=== PATIENT | female | born 1990 | race Caucasian/White ===

== ENCOUNTER → 2016-12-06 | Outpatient (CLI) | payer OTHER ==
--- NOTE | 2016-12-06 14:16 | REP ---
The third trimester obstetrical ultrasound for gestational diabetes: Comparison is the anatomy ultrasound dated 09/05/2016. There is a single intrauterine gestation in a vertex presentation. There is movement and cardiac activity, the heart rate is 131 beats per minute. The placenta is anterior. There is no placenta previa or abruptio. The placenta demonstrates grade 2 maturity. Subjectively amniotic fluid volume is normal. The amniotic fluid index is 15.9 (7.6 - 24.7). Gestational age by today's measurements is 35 weeks 2 days. Gestational age by the first ultrasound this gestation is 36 weeks 3 days and by LMP 36 weeks 3 days. weight is 2669 grams (5 pounds, 14 ounces). This is the 35th percentile for 36 weeks 3 days. Umbilical artery Doppler assessment: SD ratio 2.33 (1.84 - 2.84). Resistive index is 0.59 (0.59 - 0.75). Diastolic flow velocity 10.5 cm per second (lower limit of normal is 10 cm/sec). Signed by Cecil Carpenter MD 12/06/2016 02:07 P
== END ==
LOC: M LRY 08:42
PROVIDERS: ATTEND Specialist
DX: Z36 Encounter for antenatal screening of mother (principal); O24.410 Gestational diabetes mellitus in pregnancy, diet controlled; Z3A.35 35 weeks gestation of pregnancy

== ENCOUNTER → 2016-12-10 | Outpatient (REF) | payer OTHER | LOC: M LAB REF 13:51 | PROVIDERS: ATTEND Obstetrics & Gynecology | DX: Z34.83 Encounter for supervision of other normal pregnancy, third trimester (principal) ==

== ENCOUNTER 2016-12-21 07:58 | Inpatient (IN) | payer OTHER ==
[~2016-12-21] VITALS: Ht 160 cm; Wt 99.0 kg
[2016-12-21] VITALS (34 sets, daily range): BP systolic 105–202; BP diastolic 55–100
[2016-12-21] MEDS ORDERED: LEVO25TA5 PO (08:22)
[2016-12-21] MEDS ORDERED: PRENTAB9 PO (08:22)
[2016-12-21] MEDS ORDERED: ZOLO100T PO (08:22)
[2016-12-21] MEDS ORDERED: LR 1,000 ML IV SCH (11:26)
[2016-12-21] MEDS ORDERED: LACTATED RINGER'S 1000 ML IV STA (11:26)
[2016-12-21 12:09] LABS: MEAN CORPUSCULAR HGB CONC 34.4 g/dl (32.0-36.5); MEAN CORPUSCULAR VOLUME 81.5 fl (80.0-96.0); RED CELL DISTRIBUTION WIDTH 13.2 % (11.5-14.5); WHITE BLOOD COUNT 14.3 K/mm3 (4.0-10.0)
[2016-12-21] MEDS ORDERED: PROMETHAZINE INJ 25 MG/ML VIAL (J2550) IM ONE (12:15)
[2016-12-21] MEDS ORDERED: BUTORPHANOL 2 MG/ML INJ (J0595) IV ONE (12:15)
[2016-12-21] MEDS ORDERED: PROMETHAZINE INJ 25 MG/ML VIAL (J2550) IV ONE (12:30)
--- NOTE | 2016-12-21 13:32 | HPE ---
DATE OF ADMISSION: 12/21/2016 HISTORY: 26-year-old, (G) 1, para (P) 0 female, at 38-4/7 weeks gestation by last menstrual period (LMP) consistent with 10 week ultrasound, estimated date of confinement (EDC) 12/31/2016, presents with spontaneous loss of fluid per vagina at 3 a.m. on the day of admission. Her contractions increased progressively after that in intensity. She continued to leak fluid in small amounts after the initial gush of fluid. COURSE: The patient initiated care at 10 weeks gestation on 06/06/2016. Her first trimester blood pressure was 124/76. Weight was 198 pounds. She has hypothyroidism, which was monitored during . She requires Synthroid 50 mcg daily. She had diet controlled gestational diabetes rule out the as well. Ultrasound revealed growth at the 35th percentile at 37 weeks gestation. MEDICAL HISTORY: Anxiety and depression. SURGICAL HISTORY: None. ALLERGIES: None. SOCIAL HISTORY: The patient is . She denies cigarettes, alcohol or drug. FAMILY HISTORY: Noncontributory. PHYSICAL EXAMINATION: Blood pressure 130/78. Pulse 84. She appears moderately uncomfortable. Head and neck exam normal. Lungs clear. Heart regular rate and rhythm. Abdomen nontender, gravid. heart tones category 1. Sterile vaginal exam: Grossly ruptured with clear fluid. Cervix is 4 cm, 105% and -2 station, vertex. Contractions every 2-3 minutes. Extremities nontender. LABS: Blood type A positive, rubella immune. RPR nonreactive. Hepatitis B and C negative. HIV negative. GBS negative on 12/10/2016. ASSESSMENT: 26-year-old, 1, at 38-4/7 weeks gestation with diet controlled gestational diabetes presents with spontaneous rupture of membranes in active labor. The patient admitted on . Anticipate vaginal delivery.
[2016-12-21] MEDS ORDERED: FENTANYL 2MCG/ML ROPIVACAINE 0.2% NACL 250 ML CADD As Ordered ONE (13:53)
[2016-12-21] MEDS ORDERED: EPIDURAL COMMENT XX SCH (15:00)
[2016-12-21] MEDS ORDERED: ePHEDrine SULFATE 25 MG/5 ML(5MG/ML) SYRINGE IV PRN (15:00)
[2016-12-21] MEDS ORDERED: ONDANSETRON 4MG/2ML VIAL (J2405) IV PRN ×2 (15:00→22:00)
[2016-12-21] MEDS ORDERED: FENTANYL/ROPIVACAINE/NACL CADD 250 ML EPIDURAL SCH (15:00)
[2016-12-21] MEDS ORDERED: NALOXONE INJ 0.4 MG/1 ML VIAL (J2310) IV PRN (15:00)
[2016-12-21] MEDS ORDERED: LACTATED RINGER'S 1000 ML IV PRN (15:00)
[2016-12-21] MEDS ORDERED: diphenhydrAMINE INJ 50MG/ML VIAL (J1200) IV PRN (15:00)
[2016-12-21] MEDS ORDERED: EPIDURAL/PCA KEYS XX PRN (15:00)
[2016-12-21] MEDS ORDERED: REFRIGERATOR IV KEYS XX PRN (15:00)
[2016-12-21] MEDS ORDERED: OXYTOCIN DRIP 30 UNITS in APPROPRIATE DILUENT 1 EA IV SCH (16:45)
[2016-12-21] MEDS ORDERED: DOCUSATE SODIUM 100 MG CAP PO PRN (22:00)
[2016-12-21] MEDS ORDERED: RHOGAM 300 MCG (1500 IU) INJ (J2790) IM SCH (22:00)
[2016-12-21] MEDS ORDERED: METHYLERGONOVINE MALEATE 0.2 MG TAB PO PRN (22:00)
[2016-12-21] MEDS ORDERED: OXYTOCIN DRIP 30 UNITS in APPROPRIATE DILUENT 1 EA IV ONE (22:00)
[2016-12-21] MEDS ORDERED: MEASLES,MUMPS,RUBELLA VACCINE INJ (MMR-II) (90707) SC SCH (22:00)
[2016-12-21] MEDS ORDERED: DIBUCAINE 1% OINTMENT 30GM TOP PRN (22:00)
[2016-12-21] MEDS: IBUPROFEN 800 MG TAB PO PRN (22:39)
[2016-12-22 06:00] VITALS: BP 125/74
[2016-12-22] MEDS: LEVOTHYROXINE 0.05 MG TAB (50 MCG) PO SCH (06:43)
[2016-12-22] MEDS: IBUPROFEN 800 MG TAB PO PRN ×2 (07:34→16:41)
[2016-12-22] MEDS: PRENATAL VITAMIN TAB PO SCH (07:35)
[2016-12-22] MEDS: SERTRALINE 100 MG TAB PO SCH (07:35)
[2016-12-22] MEDS ORDERED: SERTRALINE HCL 50 MG TAB PO SCH (09:00)
--- NOTE | 2016-12-22 13:59 | DN ---
DATE: 12/21/2016 PREDELIVERY DIAGNOSIS: 38 and 4/7 weeks, labor. POSTDELIVERY DIAGNOSIS: Delivered. PROCEDURE: Spontaneous vaginal delivery. FILM PROCESS OPERATOR: Dr. Maximiliano Lopez ANESTHESIA: Epidural. ESTIMATED BLOOD LOSS: 300 mL. FINDINGS: 6 pounds 6 ounce female infant. scores of 7 and 9. DELIVERY SUMMARY: After approximately 50 minute second stage, the patient had spontaneous delivery of a 7 pounds 9 ounce female infant under epidural anesthesia. There was no nuchal cord. The shoulders delivered spontaneously with ease. The cord was doubly clamped and cut. The was handed to the mother. The placenta delivered spontaneously and appeared to be intact. The patient received IV pitocin immediately after delivery of the placenta. First degree perineal laceration was repaired with single suture of #3-0 chromic. Sponge, needle and instrument counts were correct.
[2016-12-22] MEDS: ACETAMINOPHEN 500 MG TAB PO PRN ×2 (14:10→21:14)
[2016-12-22 18:06] VITALS: BP 113/69
[2016-12-23] MEDS: LEVOTHYROXINE 0.05 MG TAB (50 MCG) PO SCH (05:30)
[2016-12-23] MEDS: IBUPROFEN 800 MG TAB PO PRN (05:30)
[2016-12-23 05:33] VITALS: BP 136/74
[2016-12-23] MEDS: PRENATAL VITAMIN TAB PO SCH (07:40)
[2016-12-23] MEDS: SERTRALINE 100 MG TAB PO SCH (07:40)
[2016-12-23] MEDS ORDERED: ACET50TA PO (11:56)
[2016-12-23] MEDS ORDERED: IBUP-1114 PO (11:56)
== END 2016-12-23 12:10 | disposition home or self-care (01) | DRG 775 ==
LOC: M LDO 07:58 → M LDI 11:25 → M OBS 22:57
PROVIDERS: ADMIT Specialist; ATTEND Specialist
PROC: 10E0XZZ Delivery of Products of Conception, External Approach (ICD-10-PCS; principal; 2016-12-21)
PROC: 0HQ9XZZ Repair Perineum Skin, External Approach (ICD-10-PCS; 2016-12-21)
DX: O24.410 Gestational diabetes mellitus in pregnancy, diet controlled (principal); Z37.0 Single live birth; Z3A.38 38 weeks gestation of pregnancy; E03.9 Hypothyroidism, unspecified; O99.284 Endocrine, nutritional and metabolic diseases complicating childbirth; O70.0 First degree perineal laceration during delivery

== ENCOUNTER → 2017-02-07 | Outpatient (CLI) | payer OTHER ==
[~2017-02-07] MED LIST: ACET50TA PO; IBUP-1114 PO; LEVO25TA5 PO; PRENTAB9 PO; ZOLO100T PO
== END ==
LOC: M LAB 08:22
PROVIDERS: ATTEND Specialist
DX: O24.410 Gestational diabetes mellitus in pregnancy, diet controlled (principal); Z3A.00 Weeks of gestation of pregnancy not specified

== ENCOUNTER → 2017-03-12 | Outpatient (REF) | payer OTHER | LOC: M SFHCLERA 11:06 | PROVIDERS: ATTEND Family Medicine | DX: E03.9 Hypothyroidism, unspecified (principal); Z53.9 Procedure and treatment not carried out, unspecified reason ==

== ENCOUNTER → 2017-03-15 | Outpatient (REF) | payer OTHER ==
[2017-03-15 20:36] LABS: FREE T4 2.4 NG/DL (0.76-1.46)
== END ==
LOC: M SFHCLERA 17:46
PROVIDERS: ATTEND Family Medicine
DX: E03.9 Hypothyroidism, unspecified (principal)

== ENCOUNTER → 2017-03-19 | Outpatient (CLI) | payer OTHER ==
--- NOTE | 2017-03-19 09:18 | REP ---
Clinical: Hypothyroidism. Technique: Real time christianson scale and color evaluation using linear high frequency transducer. Findings: The thyroid gland is mildly heterogeneous but otherwise normal in contour size and vascularity. Right lobe measures 4.4 x 1.5 x 1.2 cm without discrete nodule or cyst. Left lobe measures 3.8 x 1.7 x 1.3 cm with a 4 mm nodule along the inferior posterior margin which may actually reflect parathyroid gland. No other cyst or nodule is identified. The isthmus measures 3.5 mm in width. Impression: Heterogeneous relatively normal appearance to the gland. Small 4 mm nodule in the posterior inferior margin of the left lobe likely represents parathyroid gland. Signed by Mike Otto MD 03/19/2017 09:10 A
== END ==
LOC: M RAD 07:42
PROVIDERS: ATTEND Family Medicine
DX: E03.9 Hypothyroidism, unspecified (principal); E04.1 Nontoxic single thyroid nodule

== ENCOUNTER → 2017-04-18 | Outpatient (REF) | payer OTHER ==
[2017-04-18 16:28] LABS: FREE T4 0.58 NG/DL (0.76-1.46)
== END ==
LOC: M SFHCLERA 10:08
PROVIDERS: ATTEND Family Medicine
DX: E03.9 Hypothyroidism, unspecified (principal)

== ENCOUNTER → 2017-05-13 | Outpatient (CLI) | payer OTHER ==
--- NOTE | 2017-05-13 18:52 | REP ---
Bilateral feet: Left foot four views: Left foot four views:Mineralization and joint spaces are normal. There is no fracture or dislocation. The base of the second digit MTP is unremarkable. There are no calcifications or foreign bodies.Impression:Negative left foot. There is no change from 03/29/2016. Right foot four views: There are no comparisons. There is no fracture or dislocation. Mineralization and joint spaces are normal. There are no calcifications or foreign bodies. The great toe metatarsal is unremarkable. The great toe MTP articulation is unremarkable. Impression: Negative right foot . Signed by Cecil Carpenter MD 05/13/2017 06:43 P
== END ==
LOC: M LRY 18:09
PROVIDERS: ATTEND Physician Assistant
DX: M79.671 Pain in right foot (principal)
CPT/HCPCS: 73630; G0463

== ENCOUNTER → 2017-06-10 | Outpatient (REF) | payer OTHER ==
[2017-06-10 22:08] LABS: FREE T4 0.54 NG/DL (0.76-1.46)
== END ==
LOC: M SFHCLERA 19:13
PROVIDERS: ATTEND Family Medicine
DX: M79.671 Pain in right foot (principal); M79.672 Pain in left foot

== ENCOUNTER → 2017-07-12 | Outpatient (REF) | payer OTHER ==
[2017-07-12 21:09] LABS: FREE T4 0.98 NG/DL (0.76-1.46)
== END ==
LOC: M SFHCLERA 18:20
PROVIDERS: ATTEND Family Medicine
DX: E03.9 Hypothyroidism, unspecified (principal)

== ENCOUNTER → 2017-11-04 | Outpatient (REF) | payer OTHER | LOC: M SFHCLERA 16:21 | DX: E03.9 Hypothyroidism, unspecified (principal) ==

== ENCOUNTER → 2017-11-06 | Outpatient (CLI) | payer OTHER | LOC: M LRY 13:07 | DX: M79.89 Other specified soft tissue disorders (principal) | CPT/HCPCS: 73130; 86140 ==

== ENCOUNTER → 2017-11-26 | Outpatient (CLI) | payer OTHER ==
[2017-11-26 20:19] LABS: BASO % 0.3 % (0.0-1.0); EOS # 0.1 10^3/uL (0.0-0.50); EOS % 0.7 % (0.0-3.0); HEMATOCRIT 40.1 % (36.0-47.0); HEMOGLOBIN 13.1 g/dl (12.0-16.0); IMMATURE GRANULOCYTE % 0.3 % (0-0); LYMPH # 1.7 10^3/uL (1.5-6.5); LYMPH % 24.6 % (24.0-44.0); MEAN CORPUSCULAR HEMOGLOBIN 26.3 pg (27.0-33.0); MEAN CORPUSCULAR HGB CONC 32.7 g/dl (32.0-36.5); MEAN CORPUSCULAR VOLUME 80.5 fl (80.0-96.0); MONO # 0.5 10^3/uL (0.0-0.8); MONO % 6.8 % (0.0-5.0); NEUTROPHILS # 4.6 10^3/uL (1.8-7.7); NEUTROPHILS % 67.3 % (36.0-66.0); PLATELET COUNT, AUTOMATED 243 10^3/uL (150-450); RED BLOOD COUNT 4.98 10^6/uL (4.00-5.40); RED CELL DISTRIBUTION WIDTH 11.9 % (11.5-14.5); WHITE BLOOD COUNT 6.9 10^3/uL (4.0-10.0)
[2017-11-26 20:23] LABS: CONTROL LINE HCG INT CTR LINE PRESENT; HCG, SERUM QUALITATIVE NEGATIVE (NEGATIVE)
[2017-11-26 20:32] LABS: ALBUMIN 3.8 GM/DL (3.2-5.2); ALBUMIN/GLOBULIN RATIO 1.06 (1.00-1.93); ALKALINE PHOSPHATASE 74 U/L (45-117); ALT/SGPT 13 U/L (12-78); ANION GAP 6 MEQ/L (8-16); AST/SGOT 11 U/L (7-37); BILIRUBIN,TOTAL 0.2 MG/DL (0.2-1.0); BLOOD UREA NITROGEN 8 MG/DL (7-18); C REACTIVE PROTEIN QUANTITATIV 0.97 MG/DL (0.00-0.30); CALCIUM LEVEL 8.9 MG/DL (8.5-10.1); CARBON DIOXIDE LEVEL 26 MEQ/L (21-32); CHLORIDE LEVEL 107 MEQ/L (98-107); CREATININE FOR GFR 0.58 MG/DL (0.55-1.30); GLOMERULAR FILTRATION RATE > 60.0 (>60); GLUCOSE, FASTING 85 MG/DL (70-100); POTASSIUM SERUM 4.1 MEQ/L (3.5-5.1); RHEUMATOID FACTOR QUANT < 10.0 IU/ML (0-15.0); SODIUM LEVEL 139 MEQ/L (136-145); TOTAL 25(OH) VITAMIN D 11.1 NG/ML (30.0-100.0); TOTAL PROTEIN 7.4 GM/DL (6.4-8.2)
[2017-11-26 21:44] LABS: ERYTHROCYTE SEDIMENTATION RATE 20 mm/hr (0-20)
[2017-11-27 11:12] LABS: HEPATITIS B SURFACE ANTIGEN NEGATIVE (NEGATIVE)
[2017-11-29 00:06] LABS: Lyme Disease IgG/IgM Antibodie <0.91 ISR (0.00-0.90); Lyme Disease IgM Ab Quantitati <0.80 index (0.00-0.79); QUANTIFERON GOLD TB Negative (Negative); SSA SJOGRENS A <0.2 AI (0.0-0.9); SSB SJOGRENS B <0.2 AI (0.0-0.9); TB Test (QFT) Antigen 0.03 IU/mL (.); TB Test (QFT) Antigen Minus Ni <0.01 IU/mL (.); TB Test (QFT) Mitogen >10.00 IU/mL (.); TB Test (QFT) Nil 0.04 IU/mL (.)
== END ==
LOC: M LRY 15:04
DX: M05.79 Rheumatoid arthritis with rheumatoid factor of multiple sites without organ or systems involvement (principal); Z79.899 Other long term (current) drug therapy; E55.9 Vitamin D deficiency, unspecified; Z11.1 Encounter for screening for respiratory tuberculosis

== ENCOUNTER → 2017-12-26 | Outpatient (CLI) | payer OTHER ==
[~2017-12-26] MED LIST changes: -ACET50TA PO; +E-Z-GAS II EFFERVESCENT PACKET (SODIUM BICARB./CITRIC ACID/SIMETHICONE) As Ordered; +E-Z-HD 98% w/w 340GM SUSP BTL As Ordered; +E-Z-PAQUE 96% w/w SUSP 176GM BTL As Ordered; -IBUP-1114 PO; -LEVO25TA5 PO; -PRENTAB9 PO; -ZOLO100T PO
== END ==
LOC: M RAD 10:10
DX: F45.8 Other somatoform disorders (principal)
CPT/HCPCS: 74220

== ENCOUNTER → 2017-12-30 | Outpatient (REF) | payer OTHER | LOC: M LAB REF 18:32 | DX: Z12.4 Encounter for screening for malignant neoplasm of cervix (principal) ==

== ENCOUNTER → 2018-02-11 | Outpatient (REF) | payer OTHER ==
[2018-02-11 22:52] LABS: ALBUMIN 3.6 GM/DL (3.2-5.2); ALBUMIN/GLOBULIN RATIO 0.95 (1.00-1.93); ALKALINE PHOSPHATASE 62 U/L (45-117); ALT/SGPT 12 U/L (12-78); ANION GAP 8 MEQ/L (8-16); AST/SGOT 11 U/L (7-37); BILIRUBIN,TOTAL 0.2 MG/DL (0.2-1.0); BLOOD UREA NITROGEN 10 MG/DL (7-18); CALCIUM LEVEL 8.8 MG/DL (8.5-10.1); CARBON DIOXIDE LEVEL 26 MEQ/L (21-32); CHLORIDE LEVEL 109 MEQ/L (98-107); CREATININE FOR GFR 0.65 MG/DL (0.55-1.30); GLOMERULAR FILTRATION RATE > 60.0 (>60); GLUCOSE, FASTING 93 MG/DL (70-100); POTASSIUM SERUM 4.1 MEQ/L (3.5-5.1); SODIUM LEVEL 143 MEQ/L (136-145); TOTAL PROTEIN 7.4 GM/DL (6.4-8.2)
== END ==
LOC: M SFHCLERA 09:48
DX: M06.041 Rheumatoid arthritis without rheumatoid factor, right hand (principal)

== ENCOUNTER → 2018-03-13 | Outpatient (REF) | payer OTHER ==
[2018-03-13 17:11] LABS: BASO % 0.5 % (0.0-1.0); EOS # 0.1 10^3/uL (0.0-0.50); EOS % 1.4 % (0.0-3.0); HEMATOCRIT 34.4 % (36.0-47.0); IMMATURE GRANULOCYTE % 0.3 % (0-3.0); LYMPH # 1.6 10^3/uL (1.5-6.5); MEAN CORPUSCULAR HEMOGLOBIN 24.5 pg (27.0-33.0); MEAN CORPUSCULAR VOLUME 76.6 fl (80.0-96.0); MONO # 0.5 10^3/uL (0.0-0.8); NEUTROPHILS # 3.6 10^3/uL (1.8-7.7); NEUTROPHILS % 61.8 % (36.0-66.0); PLATELET COUNT, AUTOMATED 310 10^3/uL (150-450); RED BLOOD COUNT 4.49 10^6/uL (4.00-5.40); RED CELL DISTRIBUTION WIDTH 12.4 % (11.5-14.5); WHITE BLOOD COUNT 5.8 10^3/uL (4.0-10.0)
[2018-03-13 17:19] LABS: ESTIMATED AVERAGE GLUCOSE 85 MG/DL (60-110); HEMOGLOBIN A1c 4.6 %
== END ==
LOC: M SFHCLERA 13:45
DX: Z86.32 Personal history of gestational diabetes (principal); M06.041 Rheumatoid arthritis without rheumatoid factor, right hand

== ENCOUNTER → 2018-04-16 | Outpatient (REF) | payer OTHER ==
[2018-04-16 16:33] LABS: HEMATOCRIT 38.2 % (36.0-47.0); HEMOGLOBIN 11.9 g/dl (12.0-15.5); MEAN CORPUSCULAR HEMOGLOBIN 24.2 pg (27.0-33.0); MEAN CORPUSCULAR HGB CONC 31.2 g/dl (32.0-36.5); MEAN CORPUSCULAR VOLUME 77.6 fl (80.0-96.0); PLATELET COUNT, AUTOMATED 309 10^3/uL (150-450); RED BLOOD COUNT 4.92 10^6/uL (4.00-5.40); RED CELL DISTRIBUTION WIDTH 13.7 % (11.5-14.5)
== END ==
LOC: M SFHCLERA 12:13
DX: M06.041 Rheumatoid arthritis without rheumatoid factor, right hand (principal)

== ENCOUNTER → 2018-05-19 | Outpatient (CLI) | payer OTHER ==
[2018-05-19 17:26] LABS: ALKALINE PHOSPHATASE 59 U/L (45-117); ALT/SGPT 12 U/L (12-78); ANION GAP 7 MEQ/L (8-16); AST/SGOT 7 U/L (7-37); BILIRUBIN,TOTAL 0.1 MG/DL (0.2-1.0); BLOOD UREA NITROGEN 13 MG/DL (7-18); CALCIUM LEVEL 8.6 MG/DL (8.5-10.1); CARBON DIOXIDE LEVEL 28 MEQ/L (21-32); CHLORIDE LEVEL 107 MEQ/L (98-107); CREATININE FOR GFR 0.68 MG/DL (0.55-1.30); GLOMERULAR FILTRATION RATE > 60.0 (>60); GLUCOSE, FASTING 80 MG/DL (70-100); SODIUM LEVEL 142 MEQ/L (136-145); TOTAL PROTEIN 7.3 GM/DL (6.4-8.2)
[2018-05-19 18:00] LABS: BASO # 0.1 10^3/uL (0.0-0.2); BASO % 0.5 % (0.0-1.0); EOS # 0.1 10^3/uL (0.0-0.50); EOS % 0.6 % (0.0-3.0); HEMATOCRIT 36.5 % (36.0-47.0); HEMOGLOBIN 11.2 g/dl (12.0-15.5); IMMATURE GRANULOCYTE # 0.1 10^3/uL (0-0); IMMATURE GRANULOCYTE % 0.5 % (0-3.0); LYMPH # 2.5 10^3/uL (1.5-6.5); LYMPH % 25.2 % (24.0-44.0); MEAN CORPUSCULAR HEMOGLOBIN 23.7 pg (27.0-33.0); MEAN CORPUSCULAR HGB CONC 30.7 g/dl (32.0-36.5); MEAN CORPUSCULAR VOLUME 77.3 fl (80.0-96.0); MONO # 0.7 10^3/uL (0.0-0.8); MONO % 7.1 % (0.0-5.0); NEUTROPHILS # 6.5 10^3/uL (1.8-7.7); NEUTROPHILS % 66.1 % (36.0-66.0); PLATELET COUNT, AUTOMATED 311 10^3/uL (150-450); RED BLOOD COUNT 4.72 10^6/uL (4.00-5.40); RED CELL DISTRIBUTION WIDTH 13.3 % (11.5-14.5); WHITE BLOOD COUNT 9.9 10^3/uL (4.0-10.0)
== END ==
LOC: M LRY 12:48
DX: M06.09 Rheumatoid arthritis without rheumatoid factor, multiple sites (principal)
CPT/HCPCS: 80053

== ENCOUNTER → 2018-06-17 | Outpatient (CLI) | payer OTHER ==
[2018-06-17 19:47] LABS: BASO % 0.4 % (0.0-1.0); EOS # 0.1 10^3/uL (0.0-0.50); EOS % 1.6 % (0.0-3.0); HEMATOCRIT 33.5 % (36.0-47.0); HEMOGLOBIN 10.8 g/dl (12.0-15.5); IMMATURE GRANULOCYTE % 0.4 % (0-3.0); LYMPH # 1.8 10^3/uL (1.5-6.5); LYMPH % 25.9 % (24.0-44.0); MEAN CORPUSCULAR HEMOGLOBIN 24.1 pg (27.0-33.0); MEAN CORPUSCULAR HGB CONC 32.2 g/dl (32.0-36.5); MEAN CORPUSCULAR VOLUME 74.6 fl (80.0-96.0); MONO # 0.6 10^3/uL (0.0-0.8); MONO % 8.9 % (0.0-5.0); NEUTROPHILS # 4.3 10^3/uL (1.8-7.7); NEUTROPHILS % 62.8 % (36.0-66.0); PLATELET COUNT, AUTOMATED 335 10^3/uL (150-450); RED BLOOD COUNT 4.49 10^6/uL (4.00-5.40); RED CELL DISTRIBUTION WIDTH 13.4 % (11.5-14.5); WHITE BLOOD COUNT 6.9 10^3/uL (4.0-10.0)
[2018-06-17 19:53] LABS: ALBUMIN/GLOBULIN RATIO 0.64 (1.00-1.93); ALKALINE PHOSPHATASE 60 U/L (45-117); ALT/SGPT 11 U/L (12-78); ANION GAP 9 MEQ/L (8-16); AST/SGOT 10 U/L (7-37); BILIRUBIN,TOTAL 0.2 MG/DL (0.2-1.0); BLOOD UREA NITROGEN 9 MG/DL (7-18); CALCIUM LEVEL 8.1 MG/DL (8.5-10.1); CARBON DIOXIDE LEVEL 26 MEQ/L (21-32); CHLORIDE LEVEL 108 MEQ/L (98-107); CREATININE FOR GFR 0.75 MG/DL (0.55-1.30); GLOMERULAR FILTRATION RATE > 60.0 (>60); GLUCOSE, FASTING 109 MG/DL (70-100); POTASSIUM SERUM 3.8 MEQ/L (3.5-5.1); SODIUM LEVEL 143 MEQ/L (136-145); TOTAL PROTEIN 7.7 GM/DL (6.4-8.2)
== END ==
LOC: M LRY 17:32
DX: M06.09 Rheumatoid arthritis without rheumatoid factor, multiple sites (principal)
CPT/HCPCS: 80053